=== PATIENT | male | born 1955 | race Caucasian/White ===

== ENCOUNTER 2016-12-01 13:08 | Observation (INO) | payer MEDICARE ==
[~2016-12-01] VITALS: Ht 170.2 cm; Wt 77.8 kg
[~2016-12-01 13:08] MED LIST: ACET-703 PO; B-COCAP9 PO; CARV6.25 PO; CO Q200C3 PO; FISH120014 PO; LACTATED RINGER'S 1000 ML INJ 1,000 ML IV ONE; LORA-373 PO; MULT1TAB85 PO; NEOSTIGMINE 3 MG/3 ML SYR IV ONE; ONDANSETRON HCL 4 MG/2 ML VIAL IV PUSH ONE; PRAS10TA PO; PROPOFOL 200 MG/20 ML AMP IV ONE; RANI150T PO; SIMV40TA PO; VITA20003 PO
[2016-12-01] MEDS ORDERED: METOPROLOL TARTRATE 25 MG TAB PO PRN (13:30)
[2016-12-01] MEDS ORDERED: POVIDONE IODINE 5% (ANTISEPSIS KIT) 4 APPLICATIONS EACH NARE PRN (13:30)
[2016-12-01] MEDS ORDERED: CHLORHEXIDINE GLUCONATE 2 % 1 PACK (2 CLOTHS) TOPICAL PRN (13:30)
[2016-12-01] MEDS ORDERED: INSULIN HUMAN REGULAR 1,000 UNITS/10 ML VIAL SQ PRN (13:30)
[2016-12-01] MEDS ORDERED: SODIUM CHLORID 0.9% 500 ML IV PRN (13:30)
[2016-12-01 13:49] VITALS: BP 134/82; PULSE 60; RESP 18; TEMP 97.8; O2SAT 99
[2016-12-01] MEDS: LACTATED RINGER'S 1000 ML IV PRN (13:56)
[2016-12-01 13:58] LABS: AUTOMATED NEUTROPHIL # 3.9 TH/MM3 (1.8-7.7); BASOPHIL % 0.3 % (0.0-2.0); EOSINOPHIL # 0.2 TH/MM3 (0-0.4); EOSINOPHIL % 3.1 % (0.0-4.0); HEMATOCRIT 43.2 % (39.0-51.0); LYMPH % 22.5 % (9.0-44.0); LYMPHOCYTE # 1.4 TH/MM3 (1.0-4.8); MEAN CELL VOLUME 92.8 FL (80.0-100.0); MEAN CORPUSCULAR HEMOGLOBIN 32.2 PG (27.0-34.0); MEAN CORPUSCULAR HGB CONC 34.7 % (32.0-36.0); MONO % 9.8 % (0.0-8.0); NEUT % 64.3 % (16.0-70.0); PLATELET COUNT 96 TH/MM3 (150-450); RED BLOOD COUNT 4.65 MIL/MM3 (4.50-5.90); RED CELL DISTRIBUTION WIDTH 13.4 % (11.6-17.2); WHITE BLOOD COUNT 6.1 TH/MM3 (4.0-11.0)
[2016-12-01 14:00] LABS: HEMO FLAGS AUTO DIFF
[2016-12-01] MEDS ORDERED: MIDAZOLAM HCL 2 MG/2 ML VIAL ONE (14:38)
[2016-12-01 14:39] LABS: PLATELET ESTIMATE SMEAR LOW (NORMAL); PLATELET MORPHOLOGY NORMAL (NORMAL); SCAN/DIFF AUTO DIFF CONFIRMED
[2016-12-01] MEDS ORDERED: fentaNYL CITRATE 250 MCG/5 ML AMP ONE (14:39)
[2016-12-01] MEDS ORDERED: LIDOCAINE 1%/EPINEPHrine 1:100,000 SOLN 20 ML VIAL ONE (14:39)
[2016-12-01] MEDS ORDERED: BUPIVACAINE/EPINEPHRINE 0.5% PF 30 ML VIAL ONE (14:39)
[2016-12-01] MEDS ORDERED: FAMOTIDINE 20 MG/2 ML VIAL ONE (14:39)
[2016-12-01] MEDS ORDERED: LIDOCAINE 1%/EPINEPHrine 1:100,000 SOLN 30 ML VIAL INFIL ONE (14:59)
[2016-12-01] MEDS ORDERED: MORPHINE SULFATE 30 MG/30 ML PCA ONE (15:49)
[2016-12-01 16:00] VITALS: BP 128/80; PULSE 67; RESP 19; TEMP 95.2; O2SAT 97
[2016-12-01] MEDS ORDERED: NALOXONE HCL 0.4 MG/ML AMP IV PRN (16:15)
[2016-12-01] MEDS ORDERED: oxyCODONE/ACETAMINOPHEN 10 MG/325 MG TAB PO PRN (16:15)
[2016-12-01] MEDS ORDERED: MORPHINE SULFATE 30 MG/30 ML PCA IV SCH (16:15)
[2016-12-01] MEDS ORDERED: DO NOT ADM ANY ANTICOAGULANT DRUGS PRN (16:15)
[2016-12-01 20:00] VITALS: BP 136/88; PULSE 70; RESP 20; TEMP 96.6; O2SAT 98
[2016-12-01] MEDS: CARVEDILOL 6.25 MG TAB PO SCH (20:58)
[2016-12-01] MEDS: FAMOTIDINE 20 MG TAB PO SCH (20:58)
[2016-12-01] MEDS ORDERED: PRAVASTATIN SOD 80 MG TAB PO SCH (21:00)
[2016-12-01] MEDS: PCA - TOTAL MG MORPHINE DELIVERED PER SHIFT SCH (22:00)
[2016-12-01] MEDS ORDERED: LORazepam 0.5 MG TAB PO PRN (22:00)
[2016-12-02] VITALS: BP 127/78; PULSE 79; RESP 20; TEMP 98.8; O2SAT 92
[2016-12-02] MEDS: LACTATED RINGER'S 1000 ML IV PRN (05:21)
[2016-12-02] MEDS: PCA - TOTAL MG MORPHINE DELIVERED PER SHIFT SCH (05:24)
[2016-12-02 08:00] VITALS: BP 116/75; PULSE 80; RESP 16; TEMP 99.1; O2SAT 96
[2016-12-02] MEDS ORDERED: LORazepam 0.5 MG TAB PO PRN (08:00)
[2016-12-02] MEDS: FAMOTIDINE 20 MG TAB PO SCH (08:50)
[2016-12-02] MEDS: CARVEDILOL 6.25 MG TAB PO SCH (08:50)
[2016-12-02] MEDS ORDERED: VITAMIN B CMPLX/VITC/FOLIC AC CAP PO SCH (09:00)
[2016-12-02] MEDS ORDERED: BIOTIN PO SCH (09:00)
[2016-12-02] MEDS ORDERED: MULTIVITAMINS/MINERALS THERAPEUTIC TAB PO SCH ×2 (09:00)
[2016-12-02] MEDS ORDERED: FOLIC ACID PO SCH (09:00)
[2016-12-02] MEDS ORDERED: CARVEDILOL 6.25 MG TAB PO SCH (09:00)
[2016-12-02] MEDS ORDERED: PRASUGREL 10 MG TAB PO SCH ×2 (09:00)
[2016-12-02] MEDS ORDERED: NON-FORMULARY DRUG (Ranitidine 150 MG) PO SCH (09:00)
[2016-12-02] MEDS ORDERED: CHOLECALCIFEROL (VIT D3) 1000 UNIT TAB PO SCH (09:00)
[2016-12-02] MEDS ORDERED: NON-FORMULARY DRUG (Cholecalciferol (Vitamin D) 1 TAB) PO SCH (09:00)
[2016-12-02] MEDS ORDERED: COENZYME Q10 PO SCH (09:00)
[2016-12-02] MEDS ORDERED: [UNRECOGNIZED DRUG - OTHER] PO SCH (09:00)
[2016-12-02] MEDS ORDERED: NON-FORMULARY DRUG (Omega-3 Fatty Acids (Fish Oil) 1 CAP) PO SCH (09:00)
[2016-12-02 09:29] VITALS: O2SAT 94
--- NOTE | 2016-12-02 09:52 | HHI.PR ---
Subjective Remarks C/R Surg POD#1 afebrile, VSS trouble voiding linda PO Objective - Vital Signs Date Time Temp Pulse Resp B/P Pulse Ox O2 Delivery O2 Flow Rate FiO2 12/02/16 08:00 99.1 80 16 116/75 96 12/01/16 16:00 Room Air Result Diagram: 12/01/16 1341 Objective Remarks PE alert Abd - soft, mild tympany Rectal - dry, min drainage A/P Assessment and Plan Imp: stable post-op OOB str cath - pederson dc plans Charlie Leyva MD Dec 02, 2016 09:52
[2016-12-02] MEDS ORDERED: POLYETHYLENE GLYCOL 17 GM PKG PO PRN (10:00)
[2016-12-02] MEDS ORDERED: OXYC1TAB36 PO (10:20)
[2016-12-02] MEDS ORDERED: LIDO0.1O (10:20)
--- NOTE | 2016-12-02 18:12 | MP ---
cc: DAVID NGUYEN M.D. DATE OF SURGERY: 12/02/2016. PREOPERATIVE DIAGNOSIS: Large fourth-degree internal and external hemorrhoids. POSTOPERATIVE DIAGNOSIS: Large fourth-degree internal and external hemorrhoids. OPERATIVE PROCEDURE PERFORMED: Three quadrant internal and external hemorrhoidectomy. ANESTHESIA: General endotracheal. SURGEON: David Nguyen M.D. ESTIMATED BLOOD LOSS: Minimal. OPERATING TIME: 22 minutes. OPERATIVE FINDINGS: This patient had large prolapsing internal and external hemorrhoids and for this reason a three-quadrant internal and external hemorrhoidectomy was recommended. At surgery, a three quadrant internal and external hemorrhoidectomy was done. DESCRIPTION OF THE PROCEDURE IN DETAIL / OPERATIVE TECHNIQUE: The patient was placed on table in the prone position after adequate general endotracheal anesthesia. The area was injected with 1% Xylocaine with epinephrine infiltrating a total of about 40 mL in the subcutaneous plane. Next, the large Fansler operating anoscope was placed in the anal canal and our attention was turned to the largest hemorrhoid which was the right anterior. It was elliptically incised and then excised from the anal muscles protecting the muscles at all times. The external and internal hemorrhoidal complex was removed. The wound was then closed from the apex outward using a 2-0 chromic suture in a simple running manner. Next my attention was turned left lateral hemorrhoid, which was similarly incised and excised from the anal muscles protecting the muscles and closing the wound from the apex outward using a 2-0 chromic suture in a simple running manner. The third hemorrhoid was the right posterior and it was the smallest hemorrhoid of the three and it was primarily an internal hemorrhoid. There was no external component to this. It was elliptically incised and then excised from the internal sphincter and the sphincter was protected at all times. The wound was closed from the apex outward using a 2-0 chromic suture in a simple running manner. Once this was done, the wounds were inspected for hemostasis and found that hemostasis was good. Sponge, needle instrument counts were reported as correct. Dressing was applied. The patient tolerated procedure well and left the operating room in good condition. MD ISIDRO Green/DOMINIC /4:02 PM /6:02 PM
[2016-12-02] MEDS ORDERED: SIMVASTATIN 60 MG PO SCH (21:00)
== END 2016-12-02 11:32 | disposition home or self-care (01) ==
LOC: HSDC 13:08 → N07B 16:29
PROVIDERS: ADMIT Colon & Rectal Surgery; ATTEND Colon & Rectal Surgery
DX: K64.3 Fourth degree hemorrhoids (principal); I10 Essential (primary) hypertension; E78.5 Hyperlipidemia, unspecified
CPT/HCPCS: 00902; 46260; 85025; 88304; G0378; J2250; J2270; J2405; J2710; J3010; J7120

== ENCOUNTER 2016-12-06 12:00 | Inpatient (IN) | payer MEDICARE ==
[2016-12-06] VITALS (12 sets, daily range): BP systolic 72–107; BP diastolic 41–74; PULSE 66–98; RESP 16; TEMP 97.6–98.8; O2SAT 98–100
[~2016-12-06 12:00] MED LIST changes: -LACTATED RINGER'S 1000 ML INJ 1,000 ML IV ONE; +LIDO0.1O; -NEOSTIGMINE 3 MG/3 ML SYR IV ONE; -ONDANSETRON HCL 4 MG/2 ML VIAL IV PUSH ONE; +OXYC1TAB36 PO; -PROPOFOL 200 MG/20 ML AMP IV ONE
[2016-12-06 12:12] LABS: BLOOD GAS BASE EXCESS -3.5 mmol/L (-2-2); BLOOD GAS CARBOXYHEMOGLOBIN 1.6 % (0-4); BLOOD GAS HCO3 21 mmol/L (22-26); BLOOD GAS O2 HGB SATURATION 97 % (90-100); BLOOD GAS OXYGEN CONTENT 13.3 Vol % (12.0-20.0); BLOOD GAS PCO2 34 mmHg (38-42); BLOOD GAS PO2 143 mmHg (61-120); BLOOD GAS TOTAL HGB 9.6 G/DL (12.0-16.0); CRITICAL VALUE NO; DRAW SITE ART LINE; LITER FLOW 2.5 L/M; OXYGEN DEVICE NASAL CANNULA; STAT YES; TEMP CORR TO 98.6
[2016-12-06] MEDS ORDERED: DO NOT ADM ANY ANTICOAGULANT DRUGS PRN (13:03)
[2016-12-06] MEDS ORDERED: MIDAZOLAM HCL 2 MG/2 ML VIAL ONE (13:11)
[2016-12-06] MEDS ORDERED: KETAMINE HCL 500 MG/5 ML VIAL ONE (13:12)
[2016-12-06] MEDS ORDERED: ONDANSETRON HCL 4 MG/2 ML VIAL IV PRN (13:15)
[2016-12-06] MEDS ORDERED: KETOROLAC TROMETHAMINE 30 MG/ML (IVP) VIAL IVP PRN (13:15)
[2016-12-06] MEDS ORDERED: ENALAPRILAT 1.25 MG/ML VIAL IV PRN (13:15)
[2016-12-06] MEDS ORDERED: SODIUM CHLORIDE 0.9% FLUSH 10 ML FLUSH IV FLUSH PRN (13:15)
[2016-12-06] MEDS ORDERED: NALOXONE HCL 0.4 MG/ML AMP IV PRN (13:15)
[2016-12-06] MEDS ORDERED: *morphine SULFATE 8 MG/ML PERIprocedure ONLY ONE ×2 (13:15→13:27)
[2016-12-06] MEDS ORDERED: ACETAMINOPHEN 325 MG TAB PO PRN (13:15)
[2016-12-06] MEDS ORDERED: BENZOCAINE 6 MG/MENTHOL 10 MG LOZENGE BUCCAL PRN (13:15)
[2016-12-06] MEDS ORDERED: ENALAPRILAT 2.5 MG/2 ML VIAL IV PRN (13:15)
[2016-12-06] MEDS ORDERED: POTASSIUM CHLOR 40 MEQ PREMIX 100 ML IV PRN (13:15)
[2016-12-06] MEDS ORDERED: ACETAMINOPHEN/HYDROcodone 325 MG/5 MG TAB PO PRN ×2 (13:15)
[2016-12-06] MEDS ORDERED: POTASSIUM CHLOR 20 MEQ PREMIX 100 ML IV PRN (13:15)
[2016-12-06] MEDS ORDERED: Post-op Orders (for Pharmacy) MISC XX ONE (13:15)
[2016-12-06 13:30] LABS: AUTOMATED NEUTROPHIL # 7.8 TH/MM3 (1.8-7.7); BASOPHIL % 0.2 % (0.0-2.0); EOSINOPHIL % 0.4 % (0.0-4.0); HEMO FLAGS DIFF FINAL; LYMPH % 13.7 % (9.0-44.0); LYMPHOCYTE # 1.3 TH/MM3 (1.0-4.8); MEAN CELL VOLUME 91.7 FL (80.0-100.0); MEAN CORPUSCULAR HEMOGLOBIN 31.6 PG (27.0-34.0); MEAN CORPUSCULAR HGB CONC 34.5 % (32.0-36.0); MONO % 6.9 % (0.0-8.0); NEUT % 78.8 % (16.0-70.0); PLATELET COUNT 131 TH/MM3 (150-450); RED BLOOD COUNT 3.82 MIL/MM3 (4.50-5.90); RED CELL DISTRIBUTION WIDTH 14.4 % (11.6-17.2); WHITE BLOOD COUNT 9.8 TH/MM3 (4.0-11.0)
[2016-12-06] MEDS ORDERED: *MEPERIDINE 25 MG INJ VIAL PERIprocedural Use ONLY ONE (13:35)
[2016-12-06 13:36] LABS: APTT (PATIENT) 27.9 SEC (24.3-30.1); PROTHROMBIN TIME - PATIENT 11.4 SEC (9.8-11.6)
[2016-12-06] MEDS: D5-NS + KCL 20 MEQ INJ 1,000 ML IV SCH (13:48)
[2016-12-06] MEDS: metroNIDAZOLE 500 MG INJ 100 ML IV SCH ×2 (13:48→20:51)
[2016-12-06 13:49] LABS: ALT (GPT) 18 U/L (12-78); ANION GAP 8 MEQ/L (5-15); BICARBONATE 25.8 MEQ/L (21.0-32.0); BLOOD UREA NITROGEN 13 MG/DL (7-18); CHLORIDE 107 MEQ/L (98-107); GLOMERULAR FILTRATION RATE 70 ML/MIN (>89); POTASSIUM 4.4 MEQ/L (3.5-5.1); SODIUM (NA) 141 MEQ/L (136-145)
[2016-12-06 13:50] LABS: ALKALINE PHOSPHATASE 43 U/L (45-117); AST (GOT) 18 U/L (15-37); TOTAL BILIRUBIN ADULT 0.7 MG/DL (0.2-1.0)
[2016-12-06] MEDS ORDERED: FAMOTIDINE 20 MG TAB PO ONE (18:30)
[2016-12-06 18:39] LABS: AUTOMATED NEUTROPHIL # 7.2 TH/MM3 (1.8-7.7); BASOPHIL % 0.1 % (0.0-2.0); HEMATOCRIT 29.5 % (39.0-51.0); LYMPHOCYTE # 1.2 TH/MM3 (1.0-4.8); MEAN CORPUSCULAR HEMOGLOBIN 31.4 PG (27.0-34.0); MEAN CORPUSCULAR HGB CONC 33.7 % (32.0-36.0); MONO % 7.8 % (0.0-8.0); NEUT % 79.1 % (16.0-70.0); PLATELET COUNT 88 TH/MM3 (150-450); RED BLOOD COUNT 3.18 MIL/MM3 (4.50-5.90); RED CELL DISTRIBUTION WIDTH 14.4 % (11.6-17.2); WHITE BLOOD COUNT 9.1 TH/MM3 (4.0-11.0)
[2016-12-06 18:40] LABS: HEMO FLAGS AUTO DIFF
[2016-12-06 19:21] LABS: PLATELET ESTIMATE SMEAR LOW (NORMAL); PLATELET MORPHOLOGY NORMAL (NORMAL); SCAN/DIFF AUTO DIFF CONFIRMED
[2016-12-06] MEDS: FAMOTIDINE 20 MG TAB PO SCH (20:51)
[2016-12-06] MEDS: LORazepam 0.5 MG TAB PO PRN (20:51)
[2016-12-06] MEDS: CARVEDILOL 6.25 MG TAB PO SCH (20:51)
[2016-12-06] MEDS: PRAVASTATIN SOD 80 MG TAB PO SCH (20:51)
[2016-12-06] MEDS: SODIUM CHLORIDE 0.9% FLUSH 10 ML FLUSH IV FLUSH SCH (20:52)
[2016-12-07] VITALS (27 sets, daily range): BP systolic 93–123; BP diastolic 6–79; PULSE 62–104; RESP 16–18; TEMP 96–99.3; O2SAT 93–100
[2016-12-07] MEDS: D5-NS + KCL 20 MEQ INJ 1,000 ML IV SCH ×2 (03:20→18:53)
[2016-12-07] MEDS: metroNIDAZOLE 500 MG INJ 100 ML IV SCH (05:20)
[2016-12-07 07:08] LABS: AUTOMATED NEUTROPHIL # 4.1 TH/MM3 (1.8-7.7); BASOPHIL % 0.2 % (0.0-2.0); EOSINOPHIL # 0.1 TH/MM3 (0-0.4); EOSINOPHIL % 1.3 % (0.0-4.0); HEMATOCRIT 23.3 % (39.0-51.0); LYMPH % 20.6 % (9.0-44.0); LYMPHOCYTE # 1.3 TH/MM3 (1.0-4.8); MEAN CELL VOLUME 92.4 FL (80.0-100.0); MEAN CORPUSCULAR HEMOGLOBIN 31.2 PG (27.0-34.0); MEAN CORPUSCULAR HGB CONC 33.7 % (32.0-36.0); MONO % 10.2 % (0.0-8.0); NEUT % 67.7 % (16.0-70.0); PLATELET COUNT 70 TH/MM3 (150-450); RED BLOOD COUNT 2.52 MIL/MM3 (4.50-5.90); RED CELL DISTRIBUTION WIDTH 13.8 % (11.6-17.2); WHITE BLOOD COUNT 6.1 TH/MM3 (4.0-11.0)
[2016-12-07 07:13] LABS: HEMO FLAGS AUTO DIFF
[2016-12-07 07:15] LABS: BICARBONATE 26.6 MEQ/L (21.0-32.0); POTASSIUM 4.1 MEQ/L (3.5-5.1)
--- NOTE | 2016-12-07 07:39 | HHI.PR ---
Subjective Remarks C/R surg POD #1 afebrile, VSS UO good no further bleeding Objective - Vital Signs Date Time Temp Pulse Resp B/P Pulse Ox O2 Delivery O2 Flow Rate FiO2 12/07/16 06:06 62 12/07/16 04:48 97.5 94/60 100 12/06/16 20:47 Nasal Cannula 2.00 12/06/16 15:00 16 Result Diagram: 12/07/16 0440 12/07/16 0440 Other Results PE alert Abd - soft, flat Rectal - dressing dry, no BRB A/P Assessment and Plan Imp: stable, Hgb down tx PRBC plat down incr diet Charlie Leyva MD Dec 07, 2016 07:39
[2016-12-07] MEDS ORDERED: LORazepam 0.5 MG TAB PO PRN (07:45)
[2016-12-07] MEDS ORDERED: SILVER SULFADIAZINE/LIDOCAINE CREAM 60 GM JAR RECTAL PRN (07:45)
[2016-12-07] MEDS ORDERED: FUROSEMIDE 20 MG/2 ML VIAL IV ONE (07:45)
[2016-12-07] MEDS ORDERED: SODIUM CHLOR 0.9% 250 ML INJ 250 ML IV ONE (07:45)
[2016-12-07 07:46] LABS: PLATELET ESTIMATE SMEAR LOW (NORMAL); PLATELET MORPHOLOGY NORMAL (NORMAL); SCAN/DIFF AUTO DIFF CONFIRMED
--- NOTE | 2016-12-07 07:55 | MH ---
cc: JESSICA NATION M.D. DATE OF ADMISSION: 12/06/2016 ADMITTING DIAGNOSIS Rectal bleeding status post hemorrhoidectomy. CHIEF COMPLAINT Mr. Lozada is a 61-year-old male who underwent three quadrant hemorrhoidectomy by Dr. Nguyen on December 02, 2016. The surgery went quite well having some postop urinary retention. He was also maintained on his anticoagulation due to significant coronary disease. The patient called on the morning of admission after going to [facility] noting onset of rectal bleeding several times. He became somewhat faint and syncopal and was brought to the emergency room. In the ER he was resuscitated with some blood products and platelets and the undersigned was contacted for transfer. The patient has had one episode of bleeding since transfer and upon arriving at [place] by [facility] he did have a low blood pressure, although he was still awake and alert and was responding appropriately. He denies any abdominal pain. No nausea or vomiting. He is maintained on his anticoagulation medications. He denies any significant straining. Darby catheter has been in place draining clear urine. Please see the prior admission for more complete past medical and surgical history PERTINENT PHYSICAL GENERAL: A pleasant male in no acute distress. HEENT: Remarkable for somewhat pale, dry membranes, nonicteric sclerae. NECK: Supple without gross adenopathy. CHEST: Relatively clear, symmetrical expanding. HEART: Regular rhythm. ABDOMEN: Very soft and benign. No distension. No rebound or guarding or masses noted. ANAL INSPECTION: Revealed three quadrant hemorrhoidectomy incisions with quite a bit of blood and clots coming from the anal canal. EXTREMITIES: No cyanosis or clubbing and 1+ pedal edema. LABORATORY STUDIES Routine labs were pending. IMPRESSION A 61-year-old male status post three quadrant hemorrhoidectomy on anticoagulation who has developed rectal bleeding. The patient has been resuscitated and stabilized and we will take him back to the OR in Dr. Nguyen's absence for exam under anesthesia and inspection of the three excision sites. Most likely he will need either oversewing or cauterization of some bleeding sites. We will examine the proximal rectum and sigmoid to evacuate any other blood and clots remaining in the colon. The risks, benefits and alternatives were discussed with the patient and we set up as soon as possible. MD DAVID Mayfield/DIEGO /10:50 PM /7:43 AM
[2016-12-07] MEDS: PANTOPRAZOLE SOD 40 MG DELAYED RELEASE TAB PO SCH (08:03)
[2016-12-07] MEDS: ACETAMINOPHEN/HYDROcodone 325 MG/10 MG TAB PO PRN ×3 (08:03→21:40)
[2016-12-07] MEDS: PANTOPRAZOLE SODIUM 40 MG VIAL IVP SCH ×2 (08:03→08:06)
[2016-12-07] MEDS: FAMOTIDINE 20 MG TAB PO SCH ×2 (08:04→21:40)
[2016-12-07] MEDS: CARVEDILOL 6.25 MG TAB PO SCH ×2 (08:04→21:40)
[2016-12-07] MEDS: SODIUM CHLORIDE 0.9% FLUSH 10 ML FLUSH IV FLUSH SCH ×2 (08:04→21:00)
[2016-12-07] MEDS ORDERED: CARVEDILOL 6.25 MG TAB PO SCH (09:00)
[2016-12-07] MEDS ORDERED: PRAVASTATIN SOD 80 MG TAB PO SCH (21:00)
[2016-12-07] MEDS: PRAVASTATIN SOD 80 MG TAB PO SCH (21:40)
[2016-12-07] MEDS: LORazepam 0.5 MG TAB PO PRN (21:48)
[2016-12-08] VITALS (23 sets, daily range): BP systolic 95–116; BP diastolic 52–79; PULSE 64–88; RESP 16–20; TEMP 98.3–98.9; O2SAT 94–100
[2016-12-08] MEDS: D5-NS + KCL 20 MEQ INJ 1,000 ML IV SCH (00:27)
[2016-12-08 06:42] LABS: AUTOMATED NEUTROPHIL # 3.7 TH/MM3 (1.8-7.7); BASOPHIL % 0.3 % (0.0-2.0); EOSINOPHIL # 0.2 TH/MM3 (0-0.4); EOSINOPHIL % 3.2 % (0.0-4.0); HEMATOCRIT 23.7 % (39.0-51.0); LYMPH % 22.9 % (9.0-44.0); LYMPHOCYTE # 1.4 TH/MM3 (1.0-4.8); MEAN CELL VOLUME 92.3 FL (80.0-100.0); MEAN CORPUSCULAR HEMOGLOBIN 31.3 PG (27.0-34.0); MEAN CORPUSCULAR HGB CONC 33.9 % (32.0-36.0); NEUT % 63.6 % (16.0-70.0); PLATELET COUNT 65 TH/MM3 (150-450); RED BLOOD COUNT 2.56 MIL/MM3 (4.50-5.90); RED CELL DISTRIBUTION WIDTH 14.2 % (11.6-17.2); WHITE BLOOD COUNT 5.9 TH/MM3 (4.0-11.0)
[2016-12-08 06:44] LABS: HEMO FLAGS AUTO DIFF
[2016-12-08 07:07] LABS: BICARBONATE 29.2 MEQ/L (21.0-32.0); POTASSIUM 4.3 MEQ/L (3.5-5.1)
[2016-12-08 07:32] LABS: PLATELET ESTIMATE SMEAR LOW (NORMAL); PLATELET MORPHOLOGY NORMAL (NORMAL); SCAN/DIFF AUTO DIFF CONFIRMED
[2016-12-08] MEDS: PANTOPRAZOLE SOD 40 MG DELAYED RELEASE TAB PO SCH (08:26)
[2016-12-08] MEDS: FAMOTIDINE 20 MG TAB PO SCH ×2 (08:27→20:35)
[2016-12-08] MEDS: PANTOPRAZOLE SODIUM 40 MG VIAL IVP SCH (08:27)
[2016-12-08] MEDS: CARVEDILOL 6.25 MG TAB PO SCH ×2 (08:27→20:35)
[2016-12-08] MEDS: ACETAMINOPHEN/HYDROcodone 325 MG/10 MG TAB PO PRN ×3 (08:29→20:39)
[2016-12-08] MEDS: SODIUM CHLORIDE 0.9% FLUSH 10 ML FLUSH IV FLUSH SCH ×2 (08:30→20:35)
--- NOTE | 2016-12-08 10:57 | MP ---
cc: JESSICA NATION M.D. DATE OF SURGERY 12/06/2016 PREOPERATIVE DIAGNOSIS Rectal bleeding status post hemorrhoidectomy. PROCEDURE Exam under anesthesia with fulguration of bleeding sites and a sigmoidoscopy. POSTOPERATIVE DIAGNOSIS Rectal bleeding status post hemorrhoidectomy. SURGEON Dr. Nation PROCEDURE The patient was placed in the supine position. After adequate general anesthesia, he was turned and placed in the left lateral decubitus position and supported appropriately. His buttocks were taped apart and prepped with Betadine solution and draped in the usual sterile fashion. Rectal exam confirmed some blood and clots within the rectal vault. The proctoscope was inserted and these were evacuated. A small Hill retractor was then inserted and the three hemorrhoidectomy incisions were examined. The left lateral incision appeared to be disrupted and was showing signs of some punctate bleeding along the mucosal edges and the skin edges. These were controlled easily with electrocautery. The right anterior and posterior suture lines appeared to be intact with no evidence of major bleeding or little oozing. The rectal vault was irrigated and additional blood clots evacuated with the rigid sigmoidoscope. The three suture lines were then examining again and all felt to be hemostatic. The lumen of the anal canal was slightly narrowed, but adequate size. After adequate irrigation and debridement, no further bleeding was identified. A small piece of Surgicel was placed in the left lateral wound and a large fluff dressing placed externally. The patient tolerated the procedure quite well and was brought to recovery room in stable condition. Sponge and needle counts were correct at the end of the procedure. MD DAVID Mayfield/NANDINI /10:54 PM /10:49 AM
[2016-12-08 17:59] LABS: BLOOD, URINE SMALL (NEG); GLUCOSE,URINE NEG (NEG); KETONE, URINE NEG (NEG); MUCUS URINE FEW /lpf (OCC); NITRITE,URINE NEG (NEG); URINE COLOR COLORLESS (YELLW/STRAW)
[2016-12-08 18:01] LABS: COMMENT (UR) CATH-CULT NOT IND; CULTURE IF INDICATED CATH CULTURE NOT IND
[2016-12-08] MEDS: PRAVASTATIN SOD 80 MG TAB PO SCH (20:35)
[2016-12-08] MEDS: LORazepam 0.5 MG TAB PO PRN (20:39)
--- NOTE | 2016-12-08 21:55 | HHI.PR ---
Subjective Remarks C/R surg POD #2 afebrile, VSS UO good no further bleeding Objective - Vital Signs Date Time Temp Pulse Resp B/P Pulse Ox O2 Delivery O2 Flow Rate FiO2 12/08/16 18:00 70 12/08/16 16:00 98.3 113/79 100 12/08/16 13:11 21 12/08/16 12:00 16 12/07/16 20:28 2.00 12/06/16 20:47 Nasal Cannula Result Diagram: 12/08/16 0505 12/08/16 0505 Objective Remarks PE alert Abd - soft, flat, no BRB A/P Assessment and Plan Imp: stable, Hgb down plat down incr diet local care, LUCY maxwell plans Charlie Leyva MD Dec 08, 2016 21:55
[2016-12-09] VITALS: BP 110/71; PULSE 75; RESP 22; TEMP 98.6; O2SAT 99
[2016-12-09 04:00] VITALS: BP 129/83; PULSE 72; RESP 20; TEMP 98.1; O2SAT 99
[2016-12-09] MEDS: D5-NS + KCL 20 MEQ INJ 1,000 ML IV SCH (04:13)
[2016-12-09 07:00] VITALS: BP 117/69; PULSE 89; RESP 20; TEMP 99.1; O2SAT 98
[2016-12-09] MEDS: ACETAMINOPHEN/HYDROcodone 325 MG/10 MG TAB PO PRN (07:11)
--- NOTE | 2016-12-09 07:55 | HHI.DCPOC ---
Discharge Care Plan Diagnosis: (1) Gastrointestinal bleeding Your Health Problems Are: Incision/Drains Appetite Changes Inflammation Bleeding Tendency Irregular Bowel Function Urinary Difficulties Goals to Promote Your Health * To prevent worsening of your condition and complications * To maintain your health at the optimal level Directions to Meet Your Goals Take your medications as prescribed Follow your dietary instruction Follow activity as directed Keep your appointments as scheduled Take your immunizations and boosters as scheduled If your symptoms worsen call your PCP, if no PCP go to Urgent Care Center or Emergency Room Smoking is Dangerous to Your Health. Avoid second hand smoke Call the 24-hour hour crisis hotline for domestic abuse at Abraham Nguyen MD Dec 09, 2016 07:55
[2016-12-09 08:42] VITALS: O2SAT 98
[2016-12-09] MEDS: CARVEDILOL 6.25 MG TAB PO SCH (08:58)
[2016-12-09] MEDS: PANTOPRAZOLE SOD 40 MG DELAYED RELEASE TAB PO SCH (08:58)
[2016-12-09] MEDS: PANTOPRAZOLE SODIUM 40 MG VIAL IVP SCH (08:58)
[2016-12-09] MEDS: SODIUM CHLORIDE 0.9% FLUSH 10 ML FLUSH IV FLUSH SCH (08:58)
[2016-12-09] MEDS: FAMOTIDINE 20 MG TAB PO SCH (08:58)
[2016-12-09] MEDS ORDERED: POLYETHYLENE GLYCOL 17 GM PKG PO SCH (09:00)
[2016-12-09 10:29] LABS: AUTOMATED NEUTROPHIL # 5.4 TH/MM3 (1.8-7.7); BASOPHIL % 0.1 % (0.0-2.0); EOSINOPHIL # 0.1 TH/MM3 (0-0.4); EOSINOPHIL % 1.9 % (0.0-4.0); HEMATOCRIT 23.5 % (39.0-51.0); LYMPH % 12.2 % (9.0-44.0); LYMPHOCYTE # 0.9 TH/MM3 (1.0-4.8); MEAN CORPUSCULAR HEMOGLOBIN 31.8 PG (27.0-34.0); MEAN CORPUSCULAR HGB CONC 34.6 % (32.0-36.0); MONO % 8.9 % (0.0-8.0); NEUT % 76.9 % (16.0-70.0); PLATELET COUNT 79 TH/MM3 (150-450); RED BLOOD COUNT 2.56 MIL/MM3 (4.50-5.90); RED CELL DISTRIBUTION WIDTH 14.1 % (11.6-17.2)
[2016-12-09 10:31] LABS: HEMO FLAGS AUTO DIFF
[2016-12-09 11:20] LABS: PLATELET ESTIMATE SMEAR LOW (NORMAL); PLATELET MORPHOLOGY NORMAL (NORMAL); SCAN/DIFF AUTO DIFF CONFIRMED
--- NOTE | 2017-01-10 07:59 | MD ---
cc: JESSICA NATION M.D. ADMISSION DATE: 12/06/2016 DISCHARGE DATE: 12/09/2016 ADMISSION DIAGNOSIS Rectal bleeding status post hemorrhoidectomy. PROCEDURE 12/06/2016 - Examination under anesthesia with fulguration of bleeding sites and sigmoidoscopy. DISCHARGE DIAGNOSES 1. Rectal bleeding, status post hemorrhoidectomy. 2. Anticoagulation. 3. Postop urinary retention. HISTORY OF PRESENT ILLNESS Mr. Lozada is a 61-year-old male who underwent three quadrant hemorrhoidectomy by Dr. Nguyen on December 02, 2016. The surgery went quite well with the patient having some postop urinary retention. Due to significant for coronary artery disease, he was restarted on his anticoagulation postoperatively. The office was called on the morning of admission after the patient went to [facility], noting onset of significant rectal bleeding. In the ER he became somewhat faint and had a syncopal episode. In the ER he was resuscitated with some blood products and platelets and the undersigned was contacted for transfer to [place]. Upon transfer to [facility], the patient did have another episode of significant rectal bleeding and hypotension requiring resuscitation. He did respond to IV fluids and blood products appropriately. He denied any nausea or vomiting. He said he had any had any straining. Darby catheter has been in place due to retention and has shown good output and not clear urine. The patient was admitted for additional evaluation and urgent examination under anesthesia. Please see the recent history and physical for more complete past medical and surgical history. PERTINENT PHYSICAL GENERAL: A very pleasant, well-developed male with hypotension but no acute distress. ABDOMEN: Very soft and nondistended. Bowel sounds were normal. No rebound or guarding or any masses noted. ANAL INSPECTION: Revealed quite a bit of blood and clots coming from the anal canal. Three quadrant hemorrhoidectomy incision appeared to be opened. LABORATORY FINDINGS Routine labs were reviewed. HOSPITAL COURSE After urgent fluid resuscitation, the patient was taken to the operating room on December 06, 2016, at which point he underwent an examination under anesthesia with fulguration of bleeding sites and sigmoidoscopy. He did have significant blood and clots in the rectal lumen which were evacuated. The anal canal lumen was somewhat tight with postop changes. The left lateral incision appeared to be the most disrupted and was showing some signs of oozing from along the mucosal edges as well as the skin edges and these were controlled easily with electrocautery. The other two suture lines showed no evidence of bleeding, just a small amount of oozing which was also controlled easily. The patient remained stable during the procedure. Postoperatively he was stabilized with fluids and blood products as needed. His hemoglobin did come down to 7.9. His platelet count also fell down to 65,000. He had no further bleeding after the surgical procedure. His diet was advanced slowly and he required pain medicine for control of his postop pain. His Darby catheter was left in due to postop retention and difficulty with pain control. The patient was doing well enough to be considered for discharge home on December 09, 2016. DISCHARGE INSTRUCTIONS The patient was to continue good anal hygiene with wet-to-dry dressings and vigorous shower rinse of the anal area. Application of cream and cotton pad was to be continued. His anticoagulation was to be slowly restarted if he had no further bleeding after discharge. The patient will be seen and followed by Dr. Nguyen in 1-2 weeks. If he had any further bleeding prior to that time he was instructed to call the office for more urgent care. MD DAVID Mayfield/DIEGO /8:24 PM /7:43 AM
== END 2016-12-09 12:24 | disposition home or self-care (01) | DRG 920 ==
LOC: HPAC 12:00 → HCIS 14:01
PROVIDERS: ADMIT Colon & Rectal Surgery; ATTEND Colon & Rectal Surgery
PROC: 3E1H88Z Irrigation of Lower GI using Irrigating Substance, Via Natural or Artificial Opening Endoscopic (ICD-10-PCS; 2016-12-06)
PROC: 0W3P8ZZ Control Bleeding in Gastrointestinal Tract, Via Natural or Artificial Opening Endoscopic (ICD-10-PCS; principal; 2016-12-06 12:13)
PROC: 30233N1 Transfusion of Nonautologous Red Blood Cells into Peripheral Vein, Percutaneous Approach (ICD-10-PCS; 2016-12-08)
DX: I97.620 Postprocedural hemorrhage of a circulatory system organ or structure following other procedure (principal); T81.31XA Disruption of external operation (surgical) wound, not elsewhere classified, initial encounter; I10 Essential (primary) hypertension; K21.9 Gastro-esophageal reflux disease without esophagitis; F41.9 Anxiety disorder, unspecified; I25.10 Atherosclerotic heart disease of native coronary artery without angina pectoris; Y83.8 Other surgical procedures as the cause of abnormal reaction of the patient, or of later complication, without mention of misadventure at the time of the procedure; Z95.5 Presence of coronary angioplasty implant and graft; Z95.810 Presence of automatic (implantable) cardiac defibrillator
CPT/HCPCS: 36430; 80048; 80053; 81001; 82805; 85025; 85610; 85730; 86850; 86900; 86901; 86920; 94150; C9113; J2175; J2250; J2270; J3480; J7050; P9016